=== PATIENT | male | born 1965 | race Caucasian/White ===

== ENCOUNTER 2020-12-30 11:12 | Emergency (ER) | payer MEDICARE ==
[2020-12-30 11:35] LABS: HEMATOCRIT 42.1 % (39.0-50.0); IMMATURE GRANULOCYTES 0.5 % (0.0-5.0); MEAN CELL VOLUME 90.7 fL CALC (80.0-100.0); MEAN CORPUSCULAR HGB 30.2 pG CALC (26.0-32.0); MEAN CORPUSCULAR HGB CONC 33.3 g/dL CAL (32.0-36.0); NEUT# 6.01 thou/uL (1.82-7.42); RED BLOOD COUNT 4.64 mill/uL (4.70-6.10); RED CELL DISTRI WIDTH 15.3 % (11.5-15.5)
[2020-12-30 11:54] LABS: ALKALINE PHOSPHATASE 79 u/l (38-126); ANION GAP 9 (6-22 (CALC)); BILIRUBIN, TOTAL 0.9 mg/dL (0.0-1.4); BUN 6 mg/dL (9-20); BUN/CREATININE RATIO 7 (12-20 (CALC)); CARBON DIOXIDE 25 mmol/l (22-30); CHLORIDE 108 mmol/l (95-108); CREATININE 0.9 mg/dL (0.7-1.3); GFR > 60 ML/MIN (>=60 (CALC)); GFR FOR AFR.AMER. > 60 ML/MIN (>=60 (CALC)); POTASSIUM 3.8 mmol/l (3.5-5.1); SGOT/AST 27 u/l (17-59); SODIUM 138 mmol/l (137-146); TOTAL PROTEIN 6.7 g/dL (6.3-8.2)
[2020-12-30 11:57] LABS: ACT PARTIAL THROMBO TIME 25.2 SECONDS (20.0-32.5); PROTHROMBIN TIME 10.4 SECONDS (9.0-12.5)
[2020-12-30 12:06] LABS: MYOGLOBIN 43 ng/mL (0 - 121)
[2020-12-30 14:42] VITALS: BP 104/665
== END 2020-12-30 14:42 ==
LOC: ED 11:12
PROVIDERS: Emergency Medicine
DX: R07.9 Chest pain, unspecified (principal); I25.10 Atherosclerotic heart disease of native coronary artery without angina pectoris; I25.2 Old myocardial infarction; F17.210 Nicotine dependence, cigarettes, uncomplicated; Z95.5 Presence of coronary angioplasty implant and graft; Z20.822 Contact with and (suspected) exposure to COVID-19; Z95.810 Presence of automatic (implantable) cardiac defibrillator
CPT/HCPCS: J2060